=== PATIENT | female | born 2000 | race Caucasian/White ===

== ENCOUNTER 2022-12-10 15:14 | Emergency (ER) | payer OTHER, SELFPAY ==
[2022-12-10 15:17] VITALS: BP 124/87; PULSE 99; RESP 16; TEMP 36.9; O2SAT 97; BMI 31.9
[2022-12-10 15:23] VITALS: BP 124/87; PULSE 83; O2SAT 98
[2022-12-10 15:24] VITALS: PULSE 95; O2SAT 96
[2022-12-10 15:30] VITALS: PULSE 82; O2SAT 96
[2022-12-10] MEDS: GI COCKTAIL (VISC LIDO/ANTACID) 30 ML PO (15:54)
--- NOTE | 2022-12-10 16:18 | CRLHL7_ITS ---
For Patients: As a result of the Century Cures Act, medical imaging exams and procedure reports are released immediately into your electronic medical record. You may view this report before your referring provider. If you have questions, please contact your health care provider. INDICATION: Chest pain. TECHNIQUE: Chest 1 views. COMPARISON: None. FINDINGS: Cardiovascular and mediastinum: Heart size and vasculature are normal in caliber and appearance. Lungs and pleural spaces: Lungs are clear. No sign of infiltrate or mass. No sign of pleural effusion. No pneumothorax. Bones and soft tissues: No significant findings. IMPRESSION: No acute or significant findings. Dictated by Edin Rodsa MD @ 12/10/2022 5:11:24 PM (Electronically Signed)
[2022-12-10] MEDS: LORazepam 1 MG TABLET PO (16:32)
[2022-12-10 16:44] LABS: Basophils Absolute Auto 0.09 K/uL (0.00-0.30); Basophils Percent Auto 0.9 % (0.0-3.0); Eosinophils Absolute Auto 0.41 K/uL (0.00-0.50); Eosinophils Percent Auto 3.9 % (0.0-7.0); Hematocrit 39.9 % (33.0-51.0); Hemoglobin* 13.7 gm/dL (12.0-16.0); Immature Granulocytes Abs Auto 0.02 K/uL (0.00-0.30); Immature Granulocytes Pct Auto 0.2 %; Lymphocytes Absolute Auto 2.32 K/uL (0.90-2.90); Lymphocytes Percent Auto 22.1 % (20-44); Mean Corpuscular HGB Conc 34 gm/dL (32-36); Mean Corpuscular Hemoglobin 29 pg (26-34); Mean Corpuscular Volume 85 fL (80-100); Monocytes Percent Auto 4.9 % (0.0-11.0); Neutrophils Absolute Auto 7.16 K/uL (1.7-7.0); Platelet Count* 365 K/uL (140-440); RDW Coefficient of Variation % 12.3 % (11.5-15.5); Red Blood Count 4.69 m/uL (4.00-5.20); White Blood Count* 10.52 K/uL (4.50-11.00)
--- NOTE | 2022-12-10 16:57 | ED.CHESTPAIN ---
HPI - Chest Pain General Chief Complaint: Chest Pain Stated Complaint: Indigestion, Crushing chest pain Time Seen by Provider: 12/10/22 15:31 History of Present Illness HPI narrative: 22-year-old young woman here with Mom with concern of crushing low sternal epigastric area discomfort that started around 8:00 p.m. yesterday, had not yet had supper. She has continued in escalated some. Vaguely pleuritic though describes more of a sensation of feeling like she can not get enough air. Was monitoring oxygenation at home and it stayed in the upper 90s. No leg pain swelling. No fever. No cough or cold symptoms. Noted to be somewhat tremulous. She does acknowledge a history of anxiety has been quite anxious about this over the course of the day. Denies that typically struggles with heartburn but maybe sometimes; a little unclear. No cardiac issue history. No palpitations or rapid heart rate. Related Data Home Medications Medication Instructions Recorded Confirmed alprazolam 0.5 mg tablet,extended mg PO 12/10/22 release 24 hr duloxetine 30 mg capsule,delayed mg PO 12/10/22 release hydroxyzine HCl 25 mg tablet mg 12/10/22 Allergies Allergy/AdvReac Type Severity Reaction Status Date / Time peanut Allergy Verified 12/10/22 15:23 sesame seed Allergy Verified 12/10/22 15:23 tree nut Allergy Verified 12/10/22 15:23 Review of Systems Status of ROS Reports: 10 or more systems reviewed and unremarkable except as noted in History and below [facility] Social History Smoking Status: Current every day smoker Do you use any of these nicotine containing products: Vaping Products Second hand tobacco smoke exposure: No How often do you have a drink containing alcohol: never How often do you have six or more drinks on one occasion: Never AUDIT-C Alcohol total score: 0 Non-prescribed substance use: denies use service: No Exam Narrative Exam Narrative: Pleasant. Does appear anxious. Generally tense and a little tremulous. Skin is warm and dry. No pain to palpation lower extremities. She is well-perfused peripherally. Lungs are clear. Equal expansion excursion. She is not splinting. Is not tachypneic or particularly labored in her breathing. During my time with Nadiya, heart is in a regular rate and rhythm. No murmur rub or gallop. There is vague reproduction of discomfort to palpation in the xiphoid area and the epigastric. Abdomen otherwise is soft and nontender. Const Vital Signs, click to edit/add: Vital Signs - 24 hr 12/10/22 15:17 12/10/22 15:23 12/10/22 15:24 Temperature 98.5 F Pulse Rate 83 95 Pulse Rate [Left Pulse Oximeter] 99 Respiratory Rate 16 Blood Pressure 124/87 Blood Pressure [Left Upper Arm] 124/87 Pulse Oximetry 97 98 96 Oxygen Delivery Method Room Air 12/10/22 15:30 Temperature Pulse Rate 82 Pulse Rate [Left Pulse Oximeter] Respiratory Rate Blood Pressure Blood Pressure [Left Upper Arm] Pulse Oximetry 96 Oxygen Delivery Method Documenting provider has reviewed patient's vital signs: yes Course Vital Signs Vital signs: Initial Vital Signs Temperature 98.5 F 12/10/22 15:17 Temperature Source Temporal Artery Scan 12/10/22 15:17 Pulse Rate 99 12/10/22 15:17 Pulse Rhythm 12/10/22 15:17 Respiratory Rate 16 12/10/22 15:17 Blood Pressure 124/87 12/10/22 15:17 Blood Pressure Mean 99 12/10/22 15:17 Blood Pressure Position Sitting 12/10/22 15:17 Pulse Oximetry 97 12/10/22 15:17 Oxygen Delivery Method 12/10/22 15:17 Vital Signs Temperature 98.5 F 12/10/22 15:17 Pulse Rate 99 12/10/22 15:17 Respiratory Rate 16 12/10/22 15:17 Blood Pressure 124/87 12/10/22 15:17 Pulse Oximetry 97 12/10/22 15:17 Oxygen Delivery Method 12/10/22 15:17 Temperature 98.5 F 12/10/22 15:17 Pulse Rate 82 12/10/22 15:30 Respiratory Rate 16 12/10/22 15:17 Blood Pressure 124/87 12/10/22 15:23 Pulse Oximetry 96 12/10/22 15:30 Oxygen Delivery Method 12/10/22 15:17 MDM - Chest Pain MDM Narrative Medical decision making narrative: The differential includes pulmonary embolus, pneumomediastinum, pneumothorax, ischemic cardiovascular issue, vascular disruption, low-lying pneumonia, liver/gallbladder disease, heartburn, esophageal spasm EKG reviewed by me shows normal sinus without ischemic changes. Rate of 93. Trialing initially GI cocktail. This did seem to result in mild diminishment of symptoms. Still present though. Proceed with further cardiac/chest pain workup. Chest x-ray one view reviewed by me looks to be WNL without pneumothorax or pneumomediastinum. No infiltrate. Normal cardiac silhouette I did also order for 1 mg of oral lorazepam. On reassessment is overall improved. More calm. Labs are reassuring without evidence of cardiac injury or otherwise. Normal D-dimer. See patient discharge information/documentation Lab Data Attestation: I reviewed the patient's lab results. Labs: Lab Results 12/10/22 12/10/22 12/10/22 Range/Units 16:36 16:36 16:36 WBC 10.52 (4.50-11.00) K/uL RBC 4.69 (4.00-5.20) m/uL Hgb 13.7 (12.0-16.0) gm/dL Hct 39.9 (33.0-51.0) % MCV 85 (80-100) fL MCH 29 (26-34) pg MCHC 34 (32-36) gm/dL RDW Coeff of Suleman 12.3 (11.5-15.5) % Plt Count 365 (140-440) K/uL Neut % (Auto) 68.0 (42.0-72.0) % Lymph % (Auto) 22.1 (20-44) % [place] % (Auto) 4.9 (0.0-11.0) % Eos % (Auto) 3.9 (0.0-7.0) % Baso % (Auto) 0.9 (0.0-3.0) % Neut # (Auto) 7.16 H (1.7-7.0) K/uL Lymph # (Auto) 2.32 (0.90-2.90) K/uL [place] # (Auto) 0.50 (0.00-0.90) K/UL Eos # (Auto) 0.41 (0.00-0.50) K/uL Baso # (Auto) 0.09 (0.00-0.30) K/uL D-Dimer Quant (PE/DVT) < 0.27 (0.00-0.50) ug/ml Sodium 142 (135-149) mmol/L Potassium 3.9 (3.6-5.1) mmol/L Chloride 106 (96-114) mmol/L Carbon Dioxide 29 (20-32) mmol/L BUN 11 (5-24) mg/dL Creatinine 0.7 (0.5-1.5) mg/dL Estimated Creat Clear 106.05 Estimated GFR 127 ml/min Glucose 91 (60-115) mg/dL Calcium 9.7 (8.4-10.6) mg/dL Troponin I < 0.01 L (0.01-0.04) ng/mL C-Reactive Protein 0.7 (0.5-1.0) mg/dL NT-Pro-B Natriuret Pep < 20 pg/mL POC Troponin I (0.01-0.04) ng/ml 12/10/22 12/10/22 Range/Units 16:36 16:36 WBC (4.50-11.00) K/uL RBC (4.00-5.20) m/uL Hgb (12.0-16.0) gm/dL Hct (33.0-51.0) % MCV (80-100) fL MCH (26-34) pg MCHC (32-36) gm/dL RDW Coeff of Suleman (11.5-15.5) % Plt Count (140-440) K/uL Neut % (Auto) (42.0-72.0) % Lymph % (Auto) (20-44) % [place] % (Auto) (0.0-11.0) % Eos % (Auto) (0.0-7.0) % Baso % (Auto) (0.0-3.0) % Neut # (Auto) (1.7-7.0) K/uL Lymph # (Auto) (0.90-2.90) K/uL [place] # (Auto) (0.00-0.90) K/UL Eos # (Auto) (0.00-0.50) K/uL Baso # (Auto) (0.00-0.30) K/uL D-Dimer Quant (PE/DVT) (0.00-0.50) ug/ml Sodium (135-149) mmol/L Potassium (3.6-5.1) mmol/L Chloride (96-114) mmol/L Carbon Dioxide (20-32) mmol/L BUN (5-24) mg/dL Creatinine (0.5-1.5) mg/dL Estimated Creat Clear Estimated GFR ml/min Glucose (60-115) mg/dL Calcium (8.4-10.6) mg/dL Troponin I Cancelled (0.01-0.04) ng/mL C-Reactive Protein (0.5-1.0) mg/dL NT-Pro-B Natriuret Pep Cancelled pg/mL POC Troponin I 0.00 L (0.01-0.04) ng/ml ECG Data Attestation: I personally reviewed and interpreted this ECG as follows: (normal sinus without ischemic changes. Rate of 93.) Discharge Plan Discharge Clinical Impression: Anxiety, Atypical chest pain, Acute epigastric pain Patient Disposition: Home w/ Parent or Adult Condition: Improved Instructions: Epigastric Pain (ED) Additional Instructions: It does not appear as though you had any heart injury. This could be chest wall area discomfort or residual heartburn, as you asked. If it is chest wall normally recommend ibuprofen dosed 3 times a day for 4 or 5 days or naproxen dosed twice daily for the same time. If however this is more of heartburn related issue this might aggravate some of those symptoms. At a minimum I would take this ibuprofen or naproxen with a little bit of food. Would get outside and enjoy some nice weather. Certainly good for the mind and any stressors. A little heart pumping exercise daily does a body good. Return for increasing and persistent discomfort/pain, worsening shortness of breath particularly accompanied by lower oxygen saturations getting closer to 90, associated fever. Prescriptions: No Action hydroxyzine HCl 25 mg tablet alprazolam 0.5 mg tablet extended release 24 hr PO duloxetine 30 mg capsule,delayed release(DR/EC) PO Follow Up/Referrals: Provider,Not a Local [Primary Care Provider] - Stand Alone Forms: [facility] Info Instructions
[2022-12-10 16:58] LABS: Slide Review Reflex No
[2022-12-10 17:08] LABS: Chloride* 106 mmol/L (96-114)
[2022-12-10 17:09] LABS: Potassium* 3.9 mmol/L (3.6-5.1); Sodium* 142 mmol/L (135-149)
[2022-12-10 17:11] LABS: Creatinine* 0.7 mg/dL (0.5-1.5); Est. Creatinine Clearance* 106.05; Estimated Glomerular Filt Rate 127 ml/min
[2022-12-10 17:12] LABS: Blood Urea Nitrogen* 11 mg/dL (5-24); Calcium* 9.7 mg/dL (8.4-10.6); Carbon Dioxide* 29 mmol/L (20-32); Glucose* 91 mg/dL (60-115)
[2022-12-10 17:15] LABS: C Reactive Protein* 0.7 mg/dL (0.5-1.0)
[2022-12-10 17:31] LABS: Troponin I* < 0.01 ng/mL (0.01-0.04)
[2022-12-10 17:32] LABS: D Dimer Quantitative* < 0.27 ug/ml (0.00-0.50); NT Pro B Type NatriureticPept* < 20 pg/mL
--- NOTE | 2022-12-10 17:56 | ED.NURSE ---
Pt was cleared for discharge by Dr. Nelson. Pt and mother left ER prior to receiving discharge paperwork. No IV line was in place.
== END 2022-12-10 17:50 | disposition home or self-care (01) ==
PROVIDERS: Emergency Provider Family Medicine
DX: F41.9 Anxiety disorder, unspecified (principal); R07.9 Chest pain, unspecified; R10.13 Epigastric pain
CPT/HCPCS: 36415; 71045; 80048; 83880; 84484; 85025; 85379; 86140; 93005; 99284; A9270